=== PATIENT | male | born 1945 | race Caucasian/White ===

== ENCOUNTER 2018-12-31 01:55 | Inpatient (IN) | payer MEDICARE, OTHER ==
[~2018-12-31] VITALS: Ht 177.8 cm; Wt 95.3 kg
[2018-12-31] VITALS (12 sets, daily range): BP systolic 125–152; BP diastolic 67–110
[~2018-12-31 01:55] MED LIST: ACETAMINOPHEN 500 MG TAB PO ONE; ASPI-1471 PO; CLINDAMYCIN(*) 900 MG/NS 50 ML 50 ML IVPB ONE; DIAZ-308 PO; EZE10 PO; LEVO50TA86 PO; LIDOCAINE/SOD BICARB 8.4% SYR ID ONE; LOSA-51 PO; MELO-207 PO; MIDAZOLAM 2 MG/2 ML VIAL IVP PRN; MULT1CAP59 PO; NORMOSOL R SOLN(*) 1000 ML BAG 1,000 ML IV PRN; OLME1TAB63 PO; OMEP-218 PO; PER PO; PREGABALIN 75 MG CAPSULE PO ONE; ROSU40TA18 PO; [UNRECOGNIZED DRUG - REMARK]
[2018-12-31] MEDS ORDERED: MIDAZOLAM 2 MG/2 ML VIAL IVP PRN (06:00)
[2018-12-31] MEDS ORDERED: LIDOCAINE/SOD BICARB 8.4% SYR ID ONE (06:00)
[2018-12-31] MEDS ORDERED: ACETAMINOPHEN 500 MG TAB PO ONE (06:00)
[2018-12-31] MEDS ORDERED: NORMOSOL R SOLN(*) 1000 ML BAG 1,000 ML IV PRN (06:00)
[2018-12-31] MEDS ORDERED: CLINDAMYCIN(*) 900 MG/NS 50 ML 50 ML IVPB ONE (06:00)
[2018-12-31] MEDS ORDERED: PREGABALIN 75 MG CAPSULE PO ONE (06:00)
[2018-12-31] MEDS ORDERED: THROMBIN (BOVINE) 20,000 UNIT VIAL ONE (06:25)
[2018-12-31] MEDS ORDERED: DEXAMETHASONE SOD PHOS 10MG/ML ONE ×2 (06:25→07:05)
[2018-12-31] MEDS ORDERED: fentaNYL CITR 250 MCG/5 ML AMP ONE (06:40)
[2018-12-31] MEDS ORDERED: PROPOFOL EMUL(*) 10MG/ML 20 ML 20 ML ONE (06:40)
[2018-12-31] MEDS ORDERED: PROPOFOL(*)1000 MG/100 ML VIAL 100 ML ONE ×2 (06:44→09:04)
[2018-12-31] MEDS ORDERED: LIDOCAINE 2% IV 100 MG/5ML SYR ONE (06:45)
[2018-12-31] MEDS ORDERED: ONDANSETRON 4 MG/2 ML VIAL ONE (07:06)
[2018-12-31] MEDS ORDERED: KETAMINE HCL 200 MG/20 ML MDV ONE ×4 (07:09→10:16)
[2018-12-31] MEDS ORDERED: fentaNYL CITR 100 MCG/2 ML AMP ONE ×2 (09:03→12:31)
[2018-12-31] MEDS ORDERED: ACETAMINOPHEN(*)1000 MG/100 ML 100 ML IVPB PRN (12:10)
[2018-12-31] MEDS ORDERED: HYDROmorphone HCL 2 MG/ML SDV IVP PRN (12:10)
[2018-12-31] MEDS ORDERED: BENZOCAINE/MENTHOL 1 EACH LOZG PO PRN (12:10)
[2018-12-31] MEDS ORDERED: diphenhydrAMINE 25 MG CAP PO PRN (12:10)
[2018-12-31] MEDS ORDERED: ACETAMINOPHEN 500 MG TAB PO PRN (12:10)
[2018-12-31] MEDS ORDERED: FLUSH 10 ML SYR IVP PRN (12:10)
[2018-12-31] MEDS ORDERED: LR(*) 1000 ML BAG 1,000 ML IV PRN (12:10)
[2018-12-31] MEDS ORDERED: ONDANSETRON 4 MG/2 ML VIAL IVP PRN (12:10)
[2018-12-31] MEDS ORDERED: MAGNESIUM HYDROXIDE* 30ML UDCP PO PRN (12:10)
[2018-12-31] MEDS ORDERED: BISACODYL 10 MG SUPP PR PRN (12:10)
[2018-12-31] MEDS ORDERED: DIAZEPAM 5 MG TAB PO PRN (12:10)
[2018-12-31] MEDS ORDERED: oxyCODONE HCL 5 MG CAP PO PRN (12:10)
--- NOTE | 2018-12-31 12:38 | RADIOLOGY IMAGING REPORT ---
FACILITY: [facility] - [place], [place] PATIENT NAME: Neno Saldana : 1945 MR: [id number] V: [id number] EXAM DATE: ORDERING PHYSICIAN: RAHEEM MCLAUGHLIN TECHNOLOGIST: Location: [facility] [place] Patient: Neno Saldana : 1945 Visit/Account:[id number] Date of Sevice: 12/31/2018 C-ARM FLUORO 1 HR HISTORY: L3-L5 LATERAL FUSION Additional history: None COMPARISON: None. FINDINGS: Serial fluoroscopic images demonstrate placement of this prosthesis at L3-4 and L4-5 with pedicle scr ews affixed through the L3, L4, and L5 vertebral bodies. Hardware appears appropriately positioned. Disc space narrowing L5-S1 noted consistent with disc disease. Fluoroscopy time 4.4 minutes DAP: 36.5 Gy-cm2 IMPRESSION: Intraoperative PLIF L3-4 and L4-5 Report Dictated By: Yeison Wade MD at 12/31/2018 12:30 PM Report E-Signed By: Yeison Wade MD at 12/31/2018 12:33 PM WSN:[id number]
--- NOTE | 2018-12-31 13:18 | OPERATIVE REPORT 1 ---
EVENT DATE: December 31, 2018 SURGEON: Carlos A Quach MD ANESTHESIOLOGIST: Mitchell Carnes MD ANESTHESIA: General endotracheal. 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 PROCEDURES PERFORMED 1. L3-L4 minimally invasive lateral interbody fusion through a retroperitoneal approach. 2. L4-L5 minimally invasive lateral fusion through a retroperitoneal approach. 3. Placement of percutaneous pedicle screws for posterior fixation at L3 to L5. IV FLUIDS 2400 cc. ESTIMATED BLOOD LOSS 40 cc. IMPLANTS 1. 9 mm x 22 mm x 55 mm 7-degree lordotic interbody device from [employer] placed at L3-L4. 2. 12 mm x 22 mm x 55 mm 7-degree lordotic titanium interbody device from [employer]. 3. 6.5 mm x 45 Reline minimally invasive pedicle screws from [employer] x6.. 4. 5 mm x 60 mm pre-bend lordotic connecting rods from [employer] x2. 5. Locking caps from [employer] x6. 6. 10 cc ViBone x 2. SPECIMENS None. DRAINS None. COMPLICATIONS None. DISPOSITION Post-Anesthesia Care Unit. INDICATIONS FOR SURGERY Mr. Saldana is a 73-year old gentleman who presented to my clinic with a long history of back problems. He had undergone a minimally invasive type foraminotomy with Dr. Curtis several years ago that was really not very successful at alleviating his left lower extremity radiating pain, numbness and tingling. He continued to have these symptoms in an L3 and an L4 distribution down that left leg. On examination, he had normal strength and sensation but his x-rays and MRI showed severe asymmetric collapse of the disks at L3-L4 and L4-L5 and the MRI showed severe foraminal stenosis, left greater than right, at the L3-L4 and L4-L5 levels. Secondary to ongoing symptoms and failure of nonsurgical care, Mr. Saldana was offered and elected to undergo minimally invasive lateral fusion with interbody devices to be placed through a retroperitoneal approach at L3-L4 and L4-L5 and posterior pedicle screw fixation L3 to L5. Prior to surgery, I explained in detail to the patient the possible risks of surgery. These risks include bleeding, infection, damage to surrounding structures, nerve root injury, spinal fluid leak, persistent and/or worsening pain, need for further surgery, , blindness, sexual dysfunction, autonomic nervous system dysfunction as well as other unforeseen medical and surgical complications. An understanding that in general spinal surgery is more predictive at improving extremity discomfort than axial spine pain was stressed. DESCRIPTION OF PROCEDURE On the date of surgery, the patient was met in the preoperative hold area. All questions were answered and the operative site was marked by myself. The patient was brought in good condition to the operating room and after succumbing to anesthesia was positioned in the right lateral decubitus position on a standard OR bed. The bed was broken at the middle to allow lateral flexion of the patient. He was secured to the table with tape and axillary roll was placed. All bony protuberances and soft tissues were well padded in the standard fashion. Preoperative antibiotics were administered according to the appropriate timing schedule. Care was taken to maintain appropriate perfusion pressures during anesthesia. At this conclusion of the procedure, sponge and needle counts were correct x2. We adjusted the table as necessary to allow us to obtain perfect AP and lateral views of the L3-L4 and L4-L5 disk spaces on fluoroscopy. We then prepped and draped the patient in the standard sterile orthopedic fashion and a final time- out was undertaken to confirm correct patient, correct levels and correct surgery. Next, we began our lateral approach, making a transverse incision over the level of the L4 vertebral body. A counter incision was made just lateral to the paraspinal musculature posteriorly. Blunt finger dissection was used to develop a plane in the retroperitoneal space. I was then able to palpate the psoas muscle and we then used fluoroscopy to bring a guidewire down onto the mid point of the disk space in the lateral view at L3-L4. We had to sneak around some osteophytes in order to get the wire into the space but ultimately we were able to achieve this. We then used serial dilators, which we monitored with neurophysiologic monitoring to ensure that we were not irritating any of the nerve roots in the lumbar plexus. Once we got to our largest dilator, we selected appropriate length retractor blades and the retractor was placed over the dilators. Dilators were removed and the retractor was locked down to the table. We then opened the retractor to as great an extent as necessary to fully expose that disk space. The osteophyte was taken down and then we incised the disk there at L3-L4. Under fluoroscopic guidance, I performed a subtotal diskectomy, removing as much disk as possible and stripping the endplates of all cartilaginous remnants. We then started with an 8 mm trial and placed that and then placed a 9 mm trial and fluoroscopic images showed these to be in good position. The 9 mm trial felt like the right size so we selected a 55 mm wide, 22 mm deep, 9 mm high, 7-degree lordotic interbody device. This was packed with ViBone and then inserted into the L3-L4 disk space. This was done under fluoroscopic imaging. Once we were satisfied with placement of the graft, we withdrew all instruments and turned our attention to the L4-L5 level. Again, under fluoroscopic guidance, we inserted the guidewire into the disk space. Serial dilators were used and again we monitored this to ensure that we were not disrupting any nerve roots. The retractor was placed and distracted and we performed a diskectomy at L4-L5. At this level, we were able to size up to a 12 mm interbody device and we placed this under fluoroscopic guidance across the disk space. Final imaging studies were obtained and all instrumentation was withdrawn. The wound was irrigated with copious sterile saline solution and then closed in layers using interrupted sutures for the superficial fascia and a running subcuticular skin stitch. A sterile dressing was applied. The patient was then transferred into the prone position on a Christian table. Again, all bony protuberances and soft tissues were well padded in the standard fashion. We prepped and draped the patient for placement of percutaneous pedicle screws and marked the appropriate incision locations on the skin using fluoroscopic guidance. Incisions were then made in a Jass style approach and taken down to the lumbodorsal fascia, which was incised. Blunt finger dissection was carried out between the longissimus and multifidus muscles until we could palpate the approximate starting points for percutaneous pedicle screws. Under fluoroscopic guidance, we used Jamshidi needles to cannulate the pedicles by placing the Jamshidi needle at the 3 o'clock position on the right side of the spine and the 9 o'clock position on the left side of the spine relative to the pedicles. These were advanced against resistance through the isthmus of the pedicles and guidewires were placed. We then obtained a lateral view that confirmed the guidewires to be in appropriate position. We tapped over the guidewires and tested the taps with neurophysiologic monitoring and they all tested well above expected thresholds. Screws were then inserted under fluoroscopic guidance bilaterally at L3, L4 and L5. Once our screws were all inserted, we used the caliber to measure for appropriate length rods. 60 mm length rods were selected. These were placed in a minimally invasive fashion down into the tulips and then locked into place with locking caps. The locking caps were then finally tightened with a torque limiting device and the towers were removed. Final images were obtained that showed excellent positioning of both the interbody devices and the percutaneous pedicle screws. The wounds were irrigated with copious sterile saline solution and closed in layers using interrupted sutures for the deep fascia, inverted interrupted sutures for the subcutaneous tissue and running subcuticular skin stitch. Sponge and needle counts were correct x2. POSTOPERATIVE CARE PLAN The patient will remain in the hospital until he meets discharge criteria. He will be discharged home with instructions to follow up in two weeks. JANI
[2018-12-31] MEDS ORDERED: CLINDAMYCIN(*) 900 MG/NS 50 ML 50 ML IVPB SCH (14:00)
--- NOTE | 2018-12-31 14:44 | Hospitalist Consultation ---
History of Present Illness Requesting Physician Dr. Quach Reason for Consult Medical Management Chief Complaint s/p lumbar fusion History of Present Illness She was admitted s/p lumbar fusion. It is reported the surgery went well and without complication. History Problems: (1) Hypothyroidism Status: Chronic (2) Hypertension Status: Chronic (3) GERD (gastroesophageal reflux disease) Status: Chronic Home Meds Reported Medications Omeprazole Magnesium (PRILOSEC OTC) 20 Mg Tablet.dr, 1 TAB PO QDAY, TAB 12/24/18 Levothyroxine Sodium (LEVOTHYROXINE SODIUM) 50 Mcg Tablet, 25 MCG PO QDAY, TAB 12/01/18 Aspirin (ASPIR 81) 81 Mg Tablet.dr, 81 MG PO QDAY, TAB 02/14/16 Olmesartan/Hydrochlorothiazide (BENICAR HCT 40-25 MG TABLET) 1 Each Tablet, 1 EACH PO DAILY 02/14/16 Multivitamin (MULTIVITAMINS) 1 Each Capsule, 1 EACH PO DAILY, CAPSULE 02/14/16 Allergies: Coded Allergies: Penicillins (Verified Allergy, Severe, ANAPHYLAXIS, 02/14/16) adhesive tape (Verified Allergy, Severe, SKIN OLIVA/BLISTERS, 02/14/16) morphine (Verified Adverse Reaction, Unknown, NAUSEA/VOMITING, 02/14/16) Patient History: Breast cancer MOTHER Stroke FATHER Hx Smoking: Yes (1 PPD X 10 YRS. QUIT AROUND 1969) Smoking Status: Former Smoker Exposure to Second Hand Smoke?: No When Quit Tobacco?: 1969 Caffeine Intake: Coffee Caffeine/Cups Per Day: 3 Hx Alcohol Use: No Hx Substance Use Disorder: No Social Drug Use: Never Review of Systems All Systems Reviewed/Normal: Yes, Except as Noted Exam Vital Signs Vital Signs Date Time Temp Pulse Resp B/P (MAP) Pulse Ox O2 Delivery O2 Flow Rate FiO2 12/31/18 13:55 98.0 80 12 125/72 (89) 94 Nasal Cannula 3.0 General Appearance: Alert, Awake, No Acute Distress, Afebrile Neuro: No Gross deficits Cardiovascular: Regular Rate and Rhythm Respiratory: No Respiratory Distress, Clear to Auscultation GI: Abd Soft and Non-Tender Extremities: Warm, Perfused; No Edema Psych: Alert & Oriented X3, Appropriate Mood & Affect Assessment and Plan Problems: (1) S/P lumbar fusion Status: Acute Assessment & Plan: Followed by Dr. Quach. (2) Hypertension Status: Chronic Assessment & Plan: He is on chronic treatment with Benicar. The Olmesartan has been restarted with hold parameters. We will hold the hydrochlorothiazide. (3) GERD (gastroesophageal reflux disease) Status: Chronic Assessment & Plan: He is on chronic treatment with Omeprazole. He will be placed on Protonix throughout admission. (4) Hypothyroidism Status: Chronic Assessment & Plan: He is on chronic treatment with Levothyroxine. Venous Thromboembolism Antithrombotics Is Pt On Any Antithrombotics?: No Problem Qualifiers (1) Hypertension: Hypertension type: essential hypertension Qualified Codes: I10 - Essential (primary) hypertension DEA BOLTON Dec 31, 2018 14:44
[2018-12-31] MEDS: APAP/HYDROCODONE 325/5 TAB PO PRN ×2 (15:40→20:48)
[2018-12-31] MEDS: CLINDAMYCIN(*) 900 MG/NS 50 ML 50 ML IVPB SCH (15:40)
[2018-12-31] MEDS: DOCUSATE SODIUM 100 MG CAP PO SCH (20:47)
[2019-01-01] MEDS: CLINDAMYCIN(*) 900 MG/NS 50 ML 50 ML IVPB SCH ×2 (00:09→06:58)
[2019-01-01 02:34] VITALS: BP 129/81
[2019-01-01] MEDS ORDERED: LEVOTHYROXINE SOD 0.025 MG TAB PO SCH (06:00)
[2019-01-01] MEDS ORDERED: DIA5 PO (07:40)
[2019-01-01] MEDS ORDERED: LOR5/325 PO (07:41)
[2019-01-01] MEDS ORDERED: DOCU240C84 PO (07:41)
[2019-01-01 07:44] VITALS: BP 145/72
[2019-01-01] MEDS: DOCUSATE SODIUM 100 MG CAP PO SCH (08:49)
[2019-01-01] MEDS ORDERED: PANTOPRAZOLE SOD 20 MG TABEC PO SCH (09:00)
[2019-01-01] MEDS ORDERED: OLMESARTAN 20 MG TAB PO SCH (09:00)
--- NOTE | 2019-01-01 09:13 | RADIOLOGY IMAGING REPORT ---
FACILITY: [facility] PATIENT NAME: Neno Saldana : 1945 MR: [id number] V: [id number] EXAM DATE: ORDERING PHYSICIAN: RAHEEM MCLAUGHLIN TECHNOLOGIST: Location: [facility] - [place] Patient: Neno Saldana : 1945 Visit/Account:[id number] Date of Sevice: 01/01/2019 Exam type: L-SPINE 2 OR 3 VIEW History: L3-L5 fusion Comparison: 12/31/2018. Findings: AP and lateral views lumbar spine demonstrate post surgical changes from posterior lumbar interbody f usion at L3-4 and L4-5 with bilateral pedicle screws and intervertebral disc spacers. The alignment appears relatively unchanged when compared to yesterday's study. Extensive spondylotic changes and c ompression fractures in the visualized thoracolumbar spine again seen Artifacts from a brace overlie the lateral images. Incidentally noted is an incompletely imaged right hip arthroplasty. IMPRESSION: 1. Postsurgical changes from posterior lumbar interbody fusion at L3-4 and L4-5. Report Dictated By: Martha Campbell MD at 01/01/2019 8:44 AM Report E-Signed By: Martha Campbell MD at 01/01/2019 9:08 AM WSN:[email or web address]
--- NOTE | 2019-01-01 09:41 | NUR ---
Physical Therapy Impression PT eval complete. Pt met all PT goals with initial visit and is safe to d/c home from a mobility stand point when medically appropriate. Ofe for bed mobility with minimal verbal cues for log roll, Ofe for transfers with RW. Ambulation x200' with RW and SBA. PT cues for asc/desc platform stair with railing, pt with improved sequencing with repetition. Pt is I) with donning/doffing rigid brace with assist from spouse. No further PT needs at this time. Physical Therapy Goals 1: Pt to complete bed mobility with Ofe 2: Pt to complete transfers with Ofe and RW 3: Pt to ambulate 150' with SBA and RW 4: Pt to asc/desc platform stair with railing and CGA Patient's Goals
[2019-01-01] MEDS: APAP/HYDROCODONE 325/5 TAB PO PRN (10:08)
--- NOTE | 2019-01-01 10:39 | Hospitalist Progress Note ---
Subjective Progress Notes Subjective He was admitted after lumbar fusion. He has no complaints this morning. He had no acute events overnight. Patient Complains of: Cardiovascular: No: Chest Pain Respiratory: No: Shortness of Breath Physical Exam Vital Signs Date Time Temp Pulse Resp B/P (MAP) Pulse Ox O2 Delivery O2 Flow Rate FiO2 01/01/19 07:59 93 Room Air 01/01/19 07:44 98.1 77 18 145/72 (96) 12/31/18 22:23 3.0 Intake and Output 01/01/19 07:00 Intake Total 2510 ml Output Total 350 ml Balance 2160 ml Intake Oral 1060 ml IV Total 1450 ml Output Urine Total 250 ml Estimated Blood Loss 100 ml # Voids 5 General Appearance: Alert, Awake, No Acute Distress, Afebrile Neuro: No Gross deficits Cardiovascular: Regular Rate and Rhythm Respiratory: No Respiratory Distress, Clear to Auscultation Extremities: Warm, Perfused; No Edema Psych: Alert & Oriented X3, Appropriate Mood & Affect Assessment and Plan Problems: (1) S/P lumbar fusion Status: Acute Assessment & Plan: Followed by Dr. Quach. (2) Hypertension Status: Chronic Assessment & Plan: He is on chronic treatment with Benicar. The Olmesartan has been restarted with hold parameters. We will hold the hydrochlorothiazide. He can resume his medications per usual tomorrow. (3) GERD (gastroesophageal reflux disease) Status: Chronic Assessment & Plan: He is on chronic treatment with Omeprazole. He will be placed on Protonix throughout admission. (4) Hypothyroidism Status: Chronic Assessment & Plan: He is on chronic treatment with Levothyroxine. Exam Sepsis Risk: No Definite Risk Problem Qualifiers (1) Hypertension: Hypertension type: essential hypertension Qualified Codes: I10 - Essential (primary) hypertension DEA BOLTON FRACTIONATION SUPERVISOR Jan 01, 2019 10:39
== END 2019-01-01 10:25 | disposition home or self-care (01) | DRG 460 ==
LOC: OR 01:55 → MED 14:15
PROVIDERS: ADMIT Orthopaedic Surgery; ATTEND Orthopaedic Surgery
PROC: 0ST20ZZ Resection of Lumbar Vertebral Disc, Open Approach (ICD-10-PCS; 2018-12-31)
PROC: 0SG10AJ Fusion of 2 or more Lumbar Vertebral Joints with Interbody Fusion Device, Posterior Approach, Anterior Column, Open Approach (ICD-10-PCS; principal; 2018-12-31 07:03)
DX: M48.062 Spinal stenosis, lumbar region with neurogenic claudication (principal); M51.16 Intervertebral disc disorders with radiculopathy, lumbar region; I25.10 Atherosclerotic heart disease of native coronary artery without angina pectoris; I10 Essential (primary) hypertension; K21.9 Gastro-esophageal reflux disease without esophagitis; I45.10 Unspecified right bundle-branch block; E03.9 Hypothyroidism, unspecified; E78.5 Hyperlipidemia, unspecified; N40.0 Benign prostatic hyperplasia without lower urinary tract symptoms; Z88.0 Allergy status to penicillin; Z88.5 Allergy status to narcotic agent; Z87.891 Personal history of nicotine dependence
CPT/HCPCS: 36415; 72100; 76000; 86850; 86900; 86901; 95940; 97161; C1713; J1100; J2001; J2405; J2704; J3010; J3490